=== PATIENT | male | born 1955 | race Caucasian/White ===

== ENCOUNTER 2016-04-07 13:03 | Emergency (ER) | payer OTHER ==
[2016-04-07 14:43] VITALS: O2SAT 94
--- NOTE | 2016-04-07 15:01 | UCPHY ---
H & P Time Seen by Provider: 04/07/16 14:44 Patient Type: Established HPI/ROS: This patient presents with concerns for sinusitis which he has had several times in the past and even has a list of antibiotics which she feels have been effective in the past. He became ill 10 days ago with upper respiratory symptoms including sore throat nasal congestion and ear fullness but no actual pain. He did not have a fever to his knowledge but did experience some chills. 3 days ago he developed pain in his head primarily in the facial area associated with purulent nasal discharge and postnasal drip. REVIEW OF SYSTEMS: Constitutional: Questionable fever, chills and fatigue Eyes: No complaint ENT: No sore throat at this time, no ear pain current I Respiratory: No cough, no wheezing no shortness of breath Cardiac: No chest pain Gastrointestinal: Not addressed Genitourinary: Not addressed Musculoskeletal: No myalgias Skin: No rash Neurological: Headache Smoking Status: Never smoked Physical Exam: This is a well-developed well-nourished male. GENERAL: Well-appearing, well-nourished and in no acute distress. HEAD: Atraumatic, normocephalic. There is minimal tenderness to percussion over the maxillary sinuses. The skin overlying is not swollen or red EYES: , sclera anicteric, conjunctiva are normal. ENT: TMs normal, nares patent, oropharynx clear without exudates. Moist mucous membranes. NECK: Normal range of motion, supple without lymphadenopathy or JVD. LUNGS: Breath sounds clear to auscultation bilaterally and equal. No wheezes rales or rhonchi. HEART: Regular rate and rhythm EXTREMITIES: Normal range of motion, NEUROLOGICAL: Cranial nerves II through XII grossly intact. Normal speech, normal gait. PSYCH: Normal mood, normal affect. SKIN: Warm, dry, normal turgor, no visible rashes or lesions. Constitutional: Initial Vital Signs Temperature (C) 36.8 C 04/07/16 14:39 Heart Rate 83 04/07/16 14:39 Respiratory Rate 12 04/07/16 14:39 Blood Pressure 129/92 H 04/07/16 14:39 O2 Sat (%) 94 04/07/16 14:39 O2 Delivery Mode Room Air Allergies/Adverse Reactions: No Known Allergies Allergy (Verified 04/07/16 14:37) Home Medications: Medication Instructions Recorded Flonase 03/28/11 Albuterol 04/19/15 Flomax 0.4 MG (RX) 04/19/15 Pantoprazole Sodium 04/19/15 Symbicort 160-4.5 Mcg Inh (RX) 04/19/15 Cephalexin [Keflex] 500 mg PO QID #28 cap 04/07/16 Medical Decision Making Differential Diagnosis: I believe that this patient has a sinus congestion not a rachael sinus infection in the patient was educated concerning recommendations for antibiotic treatment and sinusitis. Because of his expectations he was given a prescription but advised to wait several days before using it. Departure - Departure Disposition: Home, Routine, Self-Care Clinical Impression: Sinusitis, acute Condition: Good Instructions: Sinusitis (ED), Upper Respiratory Infection (ED) Additional Instructions: Try to avoid using the antibiotics for 2-3 days. If symptoms worsen in the meantime start sooner. Tried using a nasal decongestant spray such as Afrin. Adult Pain & Fever Control: We recommend Acetaminophen (Tylenol) and Ibuprofen (Motrin, Advil) for pain and fever control. When fever is high or pain severe, both drugs can be used at the same time, but at different intervals. Please note the time differences. Your dose is: Acetaminophen [650]mg every 4 to 6 hours ibuprofen [600]mg every [6] hours with food OR naproxen Sodium (Aleve) [440]mg every 12 hours. Note: do not take Acetaminophen with Hydrocodone (Vicodin, Lortab) or Oxycodone (Percocet). These medications also contain Acetaminophen. No more than 3000 mg of Acetaminophen should be taken in 24 hours (for an adult) . The maximal dose of ibuprofen that it is safe in a 24-hour period is 2400 mg. You may take 400 mg every 4 hours, 600 mg every 6 hours or 800 mg every 8 hours safely. If your symptoms have not improved in 5-7 days you should be re-evaluated. Cause for concern would be increasing pain or fever greater than 101 degrees. Prescriptions: Cephalexin [Keflex] 500 mg PO QID #28 cap - PQRS PQRS Measurement: Not applicable
[2016-04-07 15:14] VITALS: BP 124/82; PULSE 82; RESP 16; TEMP 98.8
== END 2016-04-07 15:04 | disposition home or self-care (01) ==
LOC: CED 13:03
DX: J32.9 Chronic sinusitis, unspecified (principal)
CPT/HCPCS: 99214-PO; G0463-PO